=== PATIENT | male | born 1945 | race Caucasian/White ===

== ENCOUNTER → 2017-10-12 | Outpatient (CLI) | payer MEDICARE, OTHER ==
[~2017-10-12] MED LIST: IOHEXOL 240 MG/ML 50ML VIAL. ONE; IOHEXOL 300 MG/ML 75 ML VIAL. IV ONE
[2017-10-12 11:14] LABS: BASO # 0.1 x10^3/uL (0.0-0.2); BASO % 1 % (0-3); EOS # 0.2 x10^3/uL (0.0-0.7); EOS % 2 % (0-3); HEMATOCRIT 48.8 % (39.0-53.0); LYMPH # 1.5 x10^3/uL (1.0-4.8); LYMPH % 15 % (24-48); MEAN CORPUSCULAR HEMOGLOBIN 29 pg (25-35); MEAN CORPUSCULAR HGB CONC 33 g/dL (31-37); MEAN CORPUSCULAR VOLUME 87 fL (79-100); MONO # 1.2 x10^3/uL (0.0-1.1); MONO % 12 % (0-9); NEUT # 6.9 x10^3uL (1.8-7.7); NEUT % 70 % (31-73); PLATELET COUNT 277 x10^3/uL (140-400); RED CELL DISTRIBUTION WIDTH 15.1 % (11.5-14.5); WHITE BLOOD COUNT 9.9 x10^3/uL (4.0-11.0)
[2017-10-12 11:24] LABS: ALBUMIN 3.4 g/dL (3.4-5.0); ALBUMIN/GLOBULIN RATIO 0.9 (1.0-1.7); CALCIUM 9.2 mg/dL (8.5-10.1); CREATININE 1.4 mg/dL (0.7-1.3); GFR 49.5; POTASSIUM 4.7 mmol/L (3.5-5.1); TOTAL BILIRUBIN 0.5 mg/dL (0.2-1.0); TOTAL PROTEIN 7.2 g/dL (6.4-8.2)
[2017-10-12 12:14] LABS: % BANDS 6 % (0-9); % EOS 4 % (0-5); % LYMPHS 8 % (24-48); % MONOS 13 % (0-10); % SEGS 69 % (35-66)
[2017-10-12 12:15] LABS: PLT ESTIMATE ADEQUATE (ADEQUATE)
[2017-10-12 12:17] LABS: TOXIC GRANULATION SLIGHT
--- NOTE | 2017-10-12 13:53 | RAD ---
Examination: CT of the abdomen pelvis with oral and IV contrast HISTORY: History of left lower quadrant abdominal pain COMPARISON: None available Technique: Axial CT images of the abdomen was performed with oral and IV contrast. Coronal and sagittal reformats are performed Exposure: One or more of the following individualized dose reduction techniques were utilized for this examination: 1. Automated exposure control 2. Adjustment of the mA and/or kV according to patient size 3. Use of iterative reconstruction technique FINDINGS: The visualized bibasilar lungs are clear. No evidence of free air identified in the abdomen. There is mild decreased attenuation noted throughout the liver likely steatosis. There is a 2.2 cm hypodensity identified in the right lobe of the liver and a smaller 1 cm hypodensity identified in the left lobe of the liver could be cysts or cystic lesions or hemangiomas. The visualized spleen, adrenals grossly appears unremarkable. The gallbladder is mildly distended Small gallstones identified within the gallbladder. The visualized pancreas grossly appears unremarkable. The stomach is mildly distended. The small bowel is nondilated. Multiple sigmoid colon diverticulosis identified. There is minimal fat stranding identified about the descending colon diverticula best visualized on series 2 image 47. The appendix is normal. The bilateral kidneys enhance symmetrically. Cystic structures identified in the bilateral kidneys likely cysts. Prominent appearing bilateral renal pelvis is could be moderate bilateral hydronephrosis due to congenital ureteropelvic junction stenosis or prominent extrarenal pelvis. Urinary bladder is mildly distended. Mildly enlarged prostate gland. Mild aortic atherosclerosis. No significant anterior abdominal wall ventral hernia identified. No evidence of lytic bony destructive lesion. IMPRESSION: 1. No evidence of significant anterior abdominal wall ventral hernia identified. 2. Minimal fat stranding identified about the distal sigmoid colon diverticula, nonspecific could be mild diverticulitis. Correlate clinically. 3. Multiple colonic diverticulosis. 4. Cholelithiasis. 5. Hypodensity identified in the liver could be cysts or cystic lesions or hemangiomas. 6. Hepatic steatosis. 7. Moderate bilateral hydronephrosis could be due to congenital ureteropelvic junction stenosis or prominent extrarenal pelvis. 8. Bilateral renal cysts. Electronically signed by: Liban Sharpe MD (10/12/2017 1:49 PM) [facility]
== END | disposition home or self-care (01) ==
LOC: CT 10:23
PROVIDERS: ATTEND Physician Assistant Medical
DX: K57.30 Diverticulosis of large intestine without perforation or abscess without bleeding (principal); K76.0 Fatty (change of) liver, not elsewhere classified; N13.39 Other hydronephrosis; N28.1 Cyst of kidney, acquired; Z90.49 Acquired absence of other specified parts of digestive tract
CPT/HCPCS: 36415; 74177; 80053; 85007; 85025; Q9966

== ENCOUNTER → 2018-06-17 | Outpatient (CLI) | payer MEDICARE, OTHER ==
--- NOTE | 2018-06-17 17:04 | RAD ---
Bilateral knees, 4 views, 06/17/2018: HISTORY: Knee pain The knee joint spaces are well-maintained. No fracture or dislocation is identified. There is minimal spurring at the patellofemoral articulations. No joint effusion is evident. Arterial calcifications are noted. IMPRESSION: 1. Minimal spurring at the patellofemoral joints. 2. No acute bony abnormality is detected. Electronically signed by: Ricky Hernandez MD (06/17/2018 5:01 PM) [facility]
--- NOTE | 2018-06-17 17:06 | RAD ---
Bilateral shoulders, 06/17/2018: HISTORY: Shoulder pain No fracture or dislocation is identified. There is moderate degenerative change at the left AC joint and to lesser degree on the right. The periarticular soft tissues are unremarkable. IMPRESSION: 1. Degenerative change at the acromioclavicular articulations, left greater the right. 2. No acute bony abnormality is detected. Chest, 2 views, 06/17/2018: HISTORY: Pedal edema The heart size and pulmonary vascularity are normal. No pulmonary infiltrate is seen. There is no evidence of pleural fluid. Mild spurring is present in the spine. IMPRESSION: No acute cardiopulmonary abnormality is detected. Electronically signed by: Ricky Hernandez MD (06/17/2018 5:03 PM) [facility]
== END | disposition home or self-care (01) ==
LOC: DXRAD 11:50
PROVIDERS: ATTEND Physician Assistant
DX: M19.011 Primary osteoarthritis, right shoulder (principal); M19.012 Primary osteoarthritis, left shoulder; M76.892 Other specified enthesopathies of left lower limb, excluding foot; M76.891 Other specified enthesopathies of right lower limb, excluding foot; I70.203 Unspecified atherosclerosis of native arteries of extremities, bilateral legs; R60.0 Localized edema; M46.04 Spinal enthesopathy, thoracic region
CPT/HCPCS: 71046; 73030; 73560

== ENCOUNTER 2018-09-08 08:11 | Emergency (ER) | payer MEDICARE, OTHER ==
[~2018-09-08] VITALS: Ht 177.8 cm; Wt 97.4 kg
[2018-09-08 08:52] LABS: BASO % 1 % (0-3); EOS # 0.1 x10^3/uL (0.0-0.7); EOS % 2 % (0-3); HEMOGLOBIN 11.3 g/dL (13.0-17.5); LYMPH # 0.9 x10^3/uL (1.0-4.8); LYMPH % 12 % (24-48); MEAN CORPUSCULAR HEMOGLOBIN 28 pg (25-35); MEAN CORPUSCULAR HGB CONC 33 g/dL (31-37); MEAN CORPUSCULAR VOLUME 85 fL (79-100); MONO # 0.8 x10^3/uL (0.0-1.1); MONO % 10 % (0-9); NEUT # 5.5 x10^3uL (1.8-7.7); NEUT % 75 % (31-73); PLATELET COUNT 392 x10^3/uL (140-400); RED BLOOD COUNT 4.02 x10^6/uL (4.30-5.70); RED CELL DISTRIBUTION WIDTH 14.8 % (11.5-14.5); WHITE BLOOD COUNT 7.4 x10^3/uL (4.0-11.0)
--- NOTE | 2018-09-08 09:02 | RAD ---
EXAM: Head CT without contrast. HISTORY: Syncope. TECHNIQUE: Computed tomographic images of the head were obtained without contrast. *One or more of the following individualized dose reduction techniques were utilized for this examination: 1. Automated exposure control. 2. Adjustment of the mA and/or kV according to patient size. 3. Use of iterative reconstruction technique. COMPARISON: None. FINDINGS: There is no acute or subacute extra-axial or intraparenchymal hemorrhage. There is no mass effect or midline shift. There is no hydrocephalus. There are areas of decreased attenuation within the cerebral white matter, nonspecific and likely related to chronic small vessel disease. There is cerebral volume loss. There is mild paranasal sinus mucosal thickening. The orbits and mastoid air cells are unremarkable. No calvarial lesion is seen. IMPRESSION: 1. No acute intracranial finding. Note is made that MRI is more sensitive for acute infarction. 2. Subtle areas of hypodensity within the cerebral white matter, likely due to chronic small vessel disease. Electronically signed by: Jessenia Damico MD (09/08/2018 8:57 AM) [facility]
--- NOTE | 2018-09-08 09:02 | RAD ---
Single view chest 09/08/2017 CLINICAL INDICATION: Syncopal episode. COMPARISON: Chest radiograph 06/17/2018 FINDINGS: Cardiac and mediastinal silhouettes are unremarkable. No pleural effusion, pneumothorax or focal consolidation. IMPRESSION: No acute cardiopulmonary abnormality. Electronically signed by: Cecil Salvador MD (09/08/2018 8:58 AM) [id number]
[2018-09-08 09:07] LABS: ALBUMIN 2.7 g/dL (3.4-5.0); ALBUMIN/GLOBULIN RATIO 0.7 (1.0-1.7); CALCIUM 8.6 mg/dL (8.5-10.1); CREATININE 1.3 mg/dL (0.7-1.3); POTASSIUM 3.9 mmol/L (3.5-5.1); TOTAL BILIRUBIN 0.3 mg/dL (0.2-1.0); TOTAL PROTEIN 6.4 g/dL (6.4-8.2)
[2018-09-08 09:26] LABS: BARBITURATES NEG (NEG); BENZODIAZEPINES NEG (NEG); CANNABINOIDS NEG (NEG); COCAINE NEG (NEG); METHADONE NEG (NEG); OPIATES NEG (NEG); PHENCYCLIDINE NEG (NEG)
[2018-09-08 09:27] LABS: AMPHETAMINE/METHAMPHETAMINE NEG (NEG)
[2018-09-08] MEDS ORDERED: IV NORMAL SALINE 1,000ML 1,000 ML IV ONE (09:30)
[2018-09-08 09:40] LABS: BACTERIA,URINE 0 /HPF (0-FEW); BILIRUBIN,URINE NEG (NEG); CLARITY,URINE CLEAR; COLOR,URINE YELLOW; GLUCOSE,URINE NEG (NEG); NITRITE,URINE NEG (NEG); RBC,URINE 0 /HPF (0-2); SQUAMOUS EPITHELIAL CELL,UR OCC /LPF; UROBILINOGEN,URINE 0.2 mg/dL (0.2 mg/dL); WBC,URINE RARE /HPF (0-4)
[2018-09-08 10:43] VITALS: BP 120/48
--- NOTE | 2018-09-08 18:16 | EKG ---
[address] [address] Test Date: 2018-09-08 Test Time: 08:23:27 Pat Name: JODI WINCHESTER Department: Room: Gender: M [employer] Tender: HAN : 1945 Requested By: KAILEE HASSAN Order Number: [id number] Reading MD: Clive Messer Measurements Intervals [place] Rate: 76 P: 49 IN: 190 QRS: 9 QRSD: 80 T: 43 QT: 360 QTc: 409 Interpretive Statements SINUS RHYTHM LOW LIMB LEAD VOLTAGE QRS(T) CONTOUR ABNORMALITY CONSIDER ANTEROSEPTAL MYOCARDIAL DAMAGE POSSIBLY ABNORMAL ECG Electronically Signed On 09-10-2018 17:23:21 ENROLLMENT MANAGEMENT VICE PRESIDENT by Clive Messer
--- NOTE | 2018-09-11 14:38 | ED.ADGEN ---
Past History Past Medical History: Hypertension, Hypothyroid, Other Past Surgical History: Other Alcohol Use: Occasionally Drug Use: None Adult General Chief Complaint Chief Complaint Syncope HPI HPI Patient is a 72-year-old male who presents with syncopal episode. Patient had a syncopal episode this morning which was unwitnessed. States he is feeling lightheaded upon getting up from bed and then over to pick item off the floor when he had brief loss of consciousness. Patient reports prior orthostatic episodes. He is had recent diarrhea currently on prostate medication. Patient's spouse heard him fall immediately attended him. Patient's LOC lasted less than 10 seconds. No seizure activity witnessed. Denies headache, chest pain palpitations, extremity weakness or loss of sensation. No other acute symptoms or complaints. Review of Systems Review of Systems ROS as per HPI All other systems were reviewed and found to be within normal limits, except as documented in this note. Current Medications Current Medications Current Medications Medications (Trade) Dose Ordered Sig/Per Start Time Stop Time Status Last Admin Dose Admin Sodium Chloride 1,000 ml @ 1,000 mls/hr 1X ONCE 09/08/18 09:30 09/08/18 10:29 DC 09/08/18 09:34 1,000 MLS/HR Allergies Allergies Allergies Coded Allergies Type Severity Reaction Last Updated Verified No Known Drug Allergies 09/08/18 No Physical Exam Physical Exam Constitutional: Well developed, well nourished, no acute distress, non-toxic appearance. [] HENT: Normocephalic, atraumatic, bilateral external ears normal, oropharynx moist, no oral exudates, nose normal. [] Eyes: PERRLA, EOMI, conjunctiva normal, no discharge. [] Neck: Normal range of motion, no tenderness, supple, no stridor. [] Cardiovascular:Heart rate regular rhythm, no murmur [] Lungs & Thorax: Bilateral breath sounds clear to auscultation [] Abdomen: Bowel sounds normal, soft, no tenderness. [] Skin: Warm, dry, no erythema, no rash. [] Back: No tenderness. [] Extremities: No tenderness, no cyanosis, no clubbing, ROM intact, no edema. [] Neurologic: Alert and oriented X 3, normal motor function, normal sensory function, no focal deficits noted. [] Psychologic: Affect normal, judgement normal, mood normal. [] Current Patient Data Vital Signs Vital Signs Date Time Temp Pulse Resp B/P (MAP) Pulse Ox O2 Delivery O2 Flow Rate FiO2 09/08/18 10:50 70 14 100 09/08/18 10:43 120/48 (72) 09/08/18 09:13 Room Air 09/08/18 08:11 98.2 Lab Results Laboratory Tests Test 09/08/18 08:38 09/08/18 09:05 White Blood Count 7.4 x10^3/uL (4.0-11.0) Red Blood Count 4.02 x10^6/uL (4.30-5.70) L Hemoglobin 11.3 g/dL (13.0-17.5) L Hematocrit 34.0 % (39.0-53.0) L Mean Corpuscular Volume 85 fL (79-100) Mean Corpuscular Hemoglobin 28 pg (25-35) Mean Corpuscular Hemoglobin Concent 33 g/dL (31-37) Red Cell Distribution Width 14.8 % (11.5-14.5) H Platelet Count 392 x10^3/uL (140-400) Neutrophils (%) (Auto) 75 % (31-73) H Lymphocytes (%) (Auto) 12 % (24-48) L Monocytes (%) (Auto) 10 % (0-9) H Eosinophils (%) (Auto) 2 % (0-3) Basophils (%) (Auto) 1 % (0-3) Neutrophils # (Auto) 5.5 x10^3uL (1.8-7.7) Lymphocytes # (Auto) 0.9 x10^3/uL (1.0-4.8) L Monocytes # (Auto) 0.8 x10^3/uL (0.0-1.1) Eosinophils # (Auto) 0.1 x10^3/uL (0.0-0.7) Basophils # (Auto) 0.0 x10^3/uL (0.0-0.2) Sodium Level 137 mmol/L (136-145) Potassium Level 3.9 mmol/L (3.5-5.1) Chloride Level 103 mmol/L (98-107) Carbon Dioxide Level 24 mmol/L (21-32) Anion Gap 10 (6-14) Blood Urea Nitrogen 24 mg/dL (8-26) Creatinine 1.3 mg/dL (0.7-1.3) Estimated GFR (Cockcroft-Gault) 54.0 BUN/Creatinine Ratio 18 (6-20) Glucose Level 111 mg/dL (70-99) H Calcium Level 8.6 mg/dL (8.5-10.1) Total Bilirubin 0.3 mg/dL (0.2-1.0) Aspartate Amino Transferase (AST) 16 U/L (15-37) Alanine Aminotransferase (ALT) 25 U/L (16-63) Alkaline Phosphatase 136 U/L (46-116) H Troponin I Quantitative < 0.017 ng/mL (0-0.055) Total Protein 6.4 g/dL (6.4-8.2) Albumin 2.7 g/dL (3.4-5.0) L Albumin/Globulin Ratio 0.7 (1.0-1.7) L Urine Collection Type Unknown Urine Color Yellow Urine Clarity Clear Urine pH 5.5 Urine Specific [place] 1.015 Urine Protein Neg (NEG-TRACE) Urine Glucose (UA) Neg mg/dL (NEG) Urine Ketones (Stick) Neg mg/dL (NEG) Urine Blood Neg (NEG) Urine Nitrite Neg (NEG) Urine Bilirubin Neg (NEG) Urine Urobilinogen Dipstick 0.2 mg/dL (0.2 mg/dL) Urine Leukocyte Esterase Trace (NEG) Urine RBC 0 /HPF (0-2) Urine WBC Rare /HPF (0-4) Urine Squamous Epithelial Cells Occ /LPF Urine Bacteria 0 /HPF (0-FEW) Urine Mucus Slight /LPF Urine Opiates Screen Neg (NEG) Urine Methadone Screen Neg (NEG) Urine Barbiturates Neg (NEG) Urine Phencyclidine Screen Neg (NEG) Urine Amphetamine/Methamphetamine Neg (NEG) Urine Benzodiazepines Screen Neg (NEG) Urine Cocaine Screen Neg (NEG) Urine Cannabinoids Screen Neg (NEG) Urine Ethyl Alcohol Neg (NEG) Microbiology 09/08/18 Urine Culture - Preliminary, Resulted 09/08/18 Urine Culture Result 1 (NEO) - Preliminary, Resulted EKG EKG [EKG; reviewed] Radiology/Procedures Radiology/Procedures [] Course & Med Decision Making Course & Med Decision Making Pertinent Labs and Imaging studies reviewed. (See chart for details) [CT lab and imaging reviewed. Patient remains hypotensive while seated in the emergency department. IV fluids given. Blood pressure, symptoms improved. Will hold prostate medications with instructions follow-up with PCP and urologist for further management. Return precautions reviewed. Patient verbalized understanding agreement with discharge instructions prior to departure.] Final Impression Final Impression [1. Orthostatic hypotension] Dragon Disclaimer Dragon Disclaimer This electronic medical record was generated, in whole or in part, using a voice recognition dictation system. KAILEE HASSAN DO Sep 11, 2018 14:38
== END 2018-09-08 10:50 | disposition home or self-care (01) ==
LOC: ER 08:11
DX: I95.1 Orthostatic hypotension (principal); R42 Dizziness and giddiness; I10 Essential (primary) hypertension; E03.9 Hypothyroidism, unspecified
CPT/HCPCS: 36415; 70450; 71045; 80053; 80307; 81001; 84484; 85025; 87086; 87186; 93005; 96360; 99284-25; J7030

== ENCOUNTER 2018-11-26 16:11 | Inpatient (IN) | payer MEDICARE, OTHER ==
[~2018-11-26] VITALS: Ht 177.8 cm; Wt 98.0 kg
--- NOTE | 2018-11-26 16:44 | PHYS DOC ---
Past History Past Medical History: Hypertension, Hypothyroid Past Surgical History: Other Alcohol Use: None Drug Use: None Adult General Chief Complaint Chief Complaint: CHEST PAIN HPI HPI 73-year-old male presents with left-sided chest pain. The patient was escorted him on television when he began have a left-sided chest pressure. He states the pain is a 7 out of 10 at its worst and is currently a 6 out of 10. He denies shortness of breath or diaphoresis. He has not had pain like this before. He denies trauma. He has no cardiac history or heart attack. He has not had a stress test or cardiac catheter in several years. He denies fever or chills. Review of Systems Review of Systems Constitutional: Denies fever or chills [] Eyes: Denies change in visual acuity, redness, or eye pain [] HENT: Denies nasal congestion or sore throat [] Respiratory: Denies cough or shortness of breath [] Cardiovascular: No additional information not addressed in HPI [] GI: Denies abdominal pain, nausea, vomiting, bloody stools or diarrhea [] : Denies dysuria or hematuria [] Musculoskeletal: Denies back pain or joint pain [] Integument: Denies rash or skin lesions [] Neurologic: Denies headache, focal weakness or sensory changes [] Endocrine: Denies polyuria or polydipsia [] All other systems were reviewed and found to be within normal limits, except as documented in this note. Allergies Allergies Allergies Coded Allergies Type Severity Reaction Last Updated Verified No Known Drug Allergies 11/26/18 No Physical Exam Physical Exam Constitutional: Well developed, well nourished, no acute distress, non-toxic appearance. [] HENT: Normocephalic, atraumatic, bilateral external ears normal, oropharynx moist, no oral exudates, nose normal. [] Eyes: PERRLA, EOMI, conjunctiva normal, no discharge. [] Neck: Normal range of motion, no tenderness, supple, no stridor. [] Cardiovascular:Heart rate regular rhythm, no murmur [] Lungs & Thorax: Bilateral breath sounds clear to auscultation [] Abdomen: Bowel sounds normal, soft, no tenderness, no masses, no pulsatile masses. [] Skin: Warm, dry, no erythema, no rash. [] Back: No tenderness, no CVA tenderness. [] Extremities: No tenderness, no cyanosis, no clubbing, ROM intact, no edema. [] Neurologic: Alert and oriented X 3, normal motor function, normal sensory function, no focal deficits noted. [] Psychologic: Affect normal, judgement normal, mood normal. [] Current Patient Data Vital Signs Vital Signs Date Time Temp Pulse Resp B/P (MAP) Pulse Ox O2 Delivery O2 Flow Rate FiO2 11/26/18 16:22 97.7 77 18 97 Room Air EKG EKG Sinus rhythm, rate 77, leftward axis, no ST elevations or depressions.[] Radiology/Procedures Radiology/Procedures [] Impressions: EXAM: AP View of the chest DATE: 11/26/2018 4:26 PM INDICATION: CHEST PAIN COMPARISON: 09/08/2018 FINDINGS: The heart is borderline enlarged. Aorta is mildly tortuous. Mediastinal and hilar contours are stable. No focal parenchymal airspace opacity. Trace blunting left costophrenic angle likely small left pleural effusion. No pneumothorax. Biapical pleural/scarring/thickening is seen. IMPRESSION: Trace blunting left costophrenic angle, likely small left pleural effusion. Otherwise no evidence for acute cardiopulmonary process. Electronically signed by: Marlon Diaz MD (11/26/2018 4:49 PM) [facility] DICTATED AND SIGNED BY: MARLON DIAZ MD DATE: 11/26/18 1649 CC: KAILEE MONAE DO; NICHOLAS PRATER PA Course & Med Decision Making Course & Med Decision Making Pertinent Labs and Imaging studies reviewed. (See chart for details) The patient's chest x-ray is significant for a small pleural effusion. The patient's troponin is negative. His EKG is unremarkable. His labs are significant for a slightly decreased hemoglobin of 12 for slightly elevated white count of 13. His HEART score is 5. A single nitroglycerin did start to improve the patient's pain, but also lowered his blood pressure. I discussed admission with the patient for further testing and management. He is in agreement with this plan. I discussed the patient with Dr. Acevedo and he has agreed to admit the patient. [] Dragon Disclaimer Dragon Disclaimer This electronic medical record was generated, in whole or in part, using a voice recognition dictation system. Departure Departure: Impression: Primary Impression: Chest pain Disposition: ADMITTED INPATIENT Condition: STABLE Referrals: NICHOLAS PRATER (PCP) Problem Qualifiers Primary Impression: Chest pain Chest pain type: precordial pain Qualified Codes: R07.2 - Precordial pain KAILEE MONAE DO Nov 26, 2018 16:44
[2018-11-26 16:47] LABS: BASO # 0.1 x10^3/uL (0.0-0.2); BASO % 1 % (0-3); EOS # 0.2 x10^3/uL (0.0-0.7); EOS % 1 % (0-3); HEMATOCRIT 38.1 % (39.0-53.0); HEMOGLOBIN 12.3 g/dL (13.0-17.5); LYMPH # 1.8 x10^3/uL (1.0-4.8); LYMPH % 14 % (24-48); MEAN CORPUSCULAR HEMOGLOBIN 27 pg (25-35); MEAN CORPUSCULAR HGB CONC 32 g/dL (31-37); MEAN CORPUSCULAR VOLUME 84 fL (79-100); MONO # 1.1 x10^3/uL (0.0-1.1); MONO % 8 % (0-9); NEUT # 9.8 x10^3uL (1.8-7.7); NEUT % 76 % (31-73); PLATELET COUNT 310 x10^3/uL (140-400); RED BLOOD COUNT 4.52 x10^6/uL (4.30-5.70); RED CELL DISTRIBUTION WIDTH 17.7 % (11.5-14.5)
--- NOTE | 2018-11-26 16:52 | RAD ---
EXAM: AP View of the chest DATE: 11/26/2018 4:26 PM INDICATION: CHEST PAIN COMPARISON: 09/08/2018 FINDINGS: The heart is borderline enlarged. Aorta is mildly tortuous. Mediastinal and hilar contours are stable. No focal parenchymal airspace opacity. Trace blunting left costophrenic angle likely small left pleural effusion. No pneumothorax. Biapical pleural/scarring/thickening is seen. IMPRESSION: Trace blunting left costophrenic angle, likely small left pleural effusion. Otherwise no evidence for acute cardiopulmonary process. Electronically signed by: Marlon Arizmendi MD (11/26/2018 4:49 PM) [id number]
[2018-11-26 17:00] LABS: ALBUMIN 2.8 g/dL (3.4-5.0); ALBUMIN/GLOBULIN RATIO 0.8 (1.0-1.7); CALCIUM 8.8 mg/dL (8.5-10.1); CREATININE 1.3 mg/dL (0.7-1.3); GFR 53.8; POTASSIUM 3.9 mmol/L (3.5-5.1); TOTAL BILIRUBIN 0.4 mg/dL (0.2-1.0); TOTAL PROTEIN 6.2 g/dL (6.4-8.2)
[2018-11-26] MEDS ORDERED: NITROGLYCERIN SUBLINGUAL 0.4 MG BOTTLE OF 25. SL ONE (17:45)
[2018-11-26] MEDS ORDERED: ASPIRIN 81 MG TAB.CHEW PO ONE (17:45)
[2018-11-26] MEDS ORDERED: NITROGLYCERIN SUBLINGUAL 0.4 MG BOTTLE OF 25. SL PRN (18:30)
[2018-11-26] MEDS ORDERED: ONDANSETRON PF 4 MG/2 ML VIAL. IV PRN (18:30)
[2018-11-26] MEDS ORDERED: MORPHINE SULFATE 2 MG/ML DISP.SYRIN. IV PRN (18:30)
[2018-11-26 19:20] VITALS: BP 146/83
[2018-11-26] MEDS ORDERED: FLUT9.9S NS (20:41)
[2018-11-26] MEDS ORDERED: CALC1TAB54 PO (20:41)
[2018-11-26] MEDS ORDERED: SIMV40TA3 PO (20:50)
[2018-11-26] MEDS ORDERED: FINA5TAB4 PO (20:50)
[2018-11-26] MEDS ORDERED: OXYB5TAB7 PO (20:50)
[2018-11-26] MEDS ORDERED: LEVO125T5 PO (20:50)
[2018-11-26] MEDS ORDERED: LOSA100T2 PO (20:50)
[2018-11-26] MEDS ORDERED: GLUC1CAP48 PO (20:50)
[2018-11-26] MEDS ORDERED: MAG HYDROX/AL HYDROX/SIMETH 30 ML ORAL.SUSP PO PRN (21:30)
[2018-11-26 21:44] LABS: % EOS 1 % (0-5); % METAS 4 % (0-0); % MYELOS 1 % (0-0)
[2018-11-26 21:45] LABS: % LYMPHS 14 % (24-48); % MONOS 5 % (0-10)
[2018-11-26 21:46] LABS: % BANDS 2 % (0-9)
[2018-11-26 21:47] LABS: HYPERSEGS PRESENT
[2018-11-26 21:48] LABS: PLT ESTIMATE ADEQUATE (ADEQUATE)
[2018-11-26 21:49] LABS: OVALOCYTES OCC; TOXIC GRANULATION MOD
[2018-11-26] MEDS: OXYBUTYNIN CHLORIDE 5 MG TABLET PO SCH (21:50)
[2018-11-26] MEDS: SIMVASTATIN 40 MG TABLET. PO SCH (21:50)
--- NOTE | 2018-11-26 21:54 | EKG ---
[address] [address] Test Date: 2018-11-26 Test Time: 16:27:15 Pat Name: JODI WINCHESTER Department: Room: 117 A Gender: M [employer] Q[employer] Tester: : 1945 Requested By: KAILEE MONAE Order Number: [id number] Reading MD: Prateek Baer MD Measurements Intervals [place] Rate: 77 P: 34 CT: 196 QRS: -8 QRSD: 84 T: 27 QT: 354 QTc: 402 Interpretive Statements SINUS RHYTHM Electronically Signed On 11-29-2018 10:06:48 CDT by Prateek Baer MD
[2018-11-26] MEDS: MORPHINE SULFATE 4 MG/ML DISP.SYRIN. IV PRN (22:38)
[2018-11-26 23:10] VITALS: BP 115/73
[2018-11-27] VITALS (7 sets, daily range): BP systolic 85–108; BP diastolic 59–72
[2018-11-27] MEDS: MORPHINE SULFATE 4 MG/ML DISP.SYRIN. IV PRN ×5 (00:51→20:03)
[2018-11-27] MEDS: LEVOTHYROXINE 125 MCG TABLET PO SCH (06:02)
[2018-11-27] MEDS: FINASTERIDE 5 MG TABLET PO SCH (08:07)
[2018-11-27] MEDS: LOSARTAN 50 MG TABLET. PO SCH (08:07)
[2018-11-27] MEDS: GLUCOSAMINE/CHOND 500/400MG CAPSULE PO SCH (08:07)
[2018-11-27] MEDS: PANTOPRAZOLE 40 MG TABLET. PO SCH (08:08)
[2018-11-27] MEDS: FLUTICASONE 50MCG/NASAL SPRAY 16GM BOTTLE. NS SCH (08:08)
[2018-11-27] MEDS: CALCIUM CARB/VIT D3 500/200 TABLET PO SCH ×4 (08:08→20:03)
[2018-11-27 11:24] LABS: BASO # 0.1 x10^3/uL (0.0-0.2); BASO % 1 % (0-3); EOS % 0 % (0-3); HEMATOCRIT 38.8 % (39.0-53.0); HEMOGLOBIN 12.7 g/dL (13.0-17.5); LYMPH % 8 % (24-48); MEAN CORPUSCULAR HEMOGLOBIN 27 pg (25-35); MEAN CORPUSCULAR HGB CONC 33 g/dL (31-37); MEAN CORPUSCULAR VOLUME 83 fL (79-100); MONO # 1.5 x10^3/uL (0.0-1.1); MONO % 11 % (0-9); NEUT # 11.2 x10^3uL (1.8-7.7); NEUT % 81 % (31-73); PLATELET COUNT 306 x10^3/uL (140-400); RED BLOOD COUNT 4.68 x10^6/uL (4.30-5.70); RED CELL DISTRIBUTION WIDTH 17.5 % (11.5-14.5); WHITE BLOOD COUNT 13.9 x10^3/uL (4.0-11.0)
[2018-11-27 11:38] LABS: ALBUMIN 2.6 g/dL (3.4-5.0); ALBUMIN/GLOBULIN RATIO 0.7 (1.0-1.7); CALCIUM 8.8 mg/dL (8.5-10.1); CREATININE 1.2 mg/dL (0.7-1.3); POTASSIUM 4.6 mmol/L (3.5-5.1); TOTAL BILIRUBIN 1.3 mg/dL (0.2-1.0); TOTAL PROTEIN 6.3 g/dL (6.4-8.2)
[2018-11-27] MEDS ORDERED: CONTRAST GIVEN MC PRN (11:45)
[2018-11-27] MEDS ORDERED: IOHEXOL 350 MG/ML 100 ML VIAL. IV ONE (12:00)
--- NOTE | 2018-11-27 12:04 | HP ---
ADMIT DATE: 11/27/2018 HISTORY OF PRESENT ILLNESS: The patient is a 73-year-old male patient who came to the Emergency Room with left-sided chest pain. He was actually watching TV when he began having left-sided chest pressure. He states that the pain was 7/10 at its worst, and by the time he arrived to the Emergency Room, it was 6/10. He denied any shortness of breath, diaphoresis. He has never had any pain like this before. He denied any fall or trauma. There is no cardiac history or heart attack before. He has not had any stress test or cardiac catheterization in several years. He follows with a engraver wood at [facility]. On questioning him further, the pain seems to have aggravated by taking a deep breath, lying flat and somewhat improved and he leans forward. He was extensively investigated in the Emergency Room and has had an EKG, which showed he was in sinus rhythm with heart rate of 77 with leftward axis, but no ST segment elevation or depression. His chest x-ray showed that the heart is borderline enlarged and his aorta is mildly tortuous. His mediastinal and hilar contours are stable; however, there is no focal parenchymal airspace opacity, trace blunting of left costophrenic angle likely small left pleural effusion, no pneumothorax, biapical pleural scarring, thickening seen. He has had lab work, which showed that he has mild leukocytosis, the white cell count 13,000 and his first set of cardiac enzymes showed a troponin to be less than 0.017 and the patient was admitted to do 2 more sets of cardiac enzyme, check his fasting lipid profile and also consult the cardiology team. The pain seems to be more pleural pericardial in nature and is aggravated by taking a deep breath and lying flat. The patient has a small left-sided pleural effusion, but no definite infiltrate in the left lung to account for pneumonia. PAST MEDICAL HISTORY: His past medical history is significant for hypertension, hyperlipidemia, hypothyroidism, gastroesophageal reflux disease, gastritis, benign prostatic hypertrophy. The patient is known to have gallstones, but never had any acute cholecystitis. He has also obstructive sleep apnea, on CPAP, but has been using for almost 10 years, but has not been able to use last night. PAST SURGICAL HISTORY: Past surgical history is significant for umbilical hernia repair, tonsillectomy, esophagogastroduodenoscopy, and colonoscopy. ALLERGIES: He has no known drug allergies. MEDICATIONS: He is currently on following medications: He is on simvastatin 40 mg at bedtime, losartan potassium 50 mg once a day, calcium carbonate with vitamin D3 for oyster shell calcium 4 times a day, Flonase 2 sprays to each nostril once a day, levothyroxine sodium 125 mcg once a day, oxybutynin chloride 5 mg at bedtime, finasteride 5 mg tablet daily, and glucosamine/chondroitin capsules 3 capsules p.o. daily. FAMILY HISTORY: He has one brother, younger, has leukemia; two sisters, both have hypothyroidism and one of them has diabetes. His father in a motor vehicle accident. Mother at the age of 87 because of congestive heart failure. SOCIAL HISTORY: He is , has 2 children from his previous marriage of his own and 2 stepchildren from his second marriage. He quit smoking in 1994. He used to smoke half a pack a day and smoked for 15 years. He drinks alcohol very occasionally. 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 REVIEW OF SYSTEMS: The patient denied any blurring of vision, cataract, glaucoma or macular degeneration. Denied any earache, tinnitus or sensorineural deafness. Denied any nosebleeds, stuffy nose or postnasal drip. Denied any sore throat, sore tongue, toothache, hoarseness of voice or difficulty swallowing. He denied any nausea, vomiting, diarrhea or constipation. Denied any hematemesis, melena or hematochezia. He has upper GI endoscopy about 2 weeks ago so that he has gastritis. He denied any dysuria, frequency or hematuria. He did complain of chest pain, mostly in the left side that is aggravated by taking a deep breath, worse on lying flat and slightly improved when he leans forward. Denied any cough, phlegm or hemoptysis. Denied any chills, rigors or fever. Denied any dizziness, lightheadedness, or vertigo. PHYSICAL EXAMINATION: GENERAL: When I examined him on arrival to the Emergency Room, he looked well and was clearly in no apparent respiratory distress. No pallor, jaundice, cyanosis, or thyromegaly. No jugular venous distension. No lower limb edema. VITAL SIGNS: His heart rate was 77, blood pressure was 165/78, temperature was 97.7, respiratory rate was 18 and oxygen saturation was 97%. HEENT: Examination of the head, eyes, ears, nose and throat showed normocephalic, atraumatic. NECK: Supple. HEART: Showed normal first and second heart sounds. No gallop, rub or murmur. CHEST: Clear to auscultation. No crepitation or rhonchi. ABDOMEN: Distended, soft, nontender. No guarding or rigidity. No organomegaly. All his hernial orifices are intact and bowel sounds normal. NEUROLOGIC: He was hard of hearing, but otherwise all his cranial nerves are intact. EXTREMITIES: He moves extremities without difficulty. He ambulates without assistance or assistive devices. LABORATORY DATA AND IMAGING STUDIES: His lab work on arrival showed a white cell count of 13,000, hemoglobin 12.3, hematocrit 38, MCV 84 and a platelet count of 310,000. His chemistry showed a serum sodium 141, potassium 3.9, chloride 105, bicarbonate 28, anion gap of 8, BUN 29, creatinine 1.3, estimated GFR was 54 mL per minute. His glucose was 90, calcium was 8.8. Total bilirubin, AST, ALT, alkaline phosphatase were normal. First set of cardiac enzymes showed troponin to be less than 0.017. Total protein was 6.2, albumin 2.8. His chest x-ray showed that the patient's heart size is borderline enlarged, aorta is mildly tortuous, mediastinal hilar contours are stable, no focal parenchymal airspace opacity, trace blunting of the left costophrenic angle likely small left pleural effusion. No pneumothorax, biapical pleural scarring, thickening is seen. The impression is the patient has trace blunting of the left costophrenic angle likely small left pleural effusion, otherwise no evidence of acute cardiopulmonary process. IMPRESSION AND PLAN: So, in summary, this is a 73-year-old male patient, who came with left-sided chest pain that is not associated with exertion, not associated with nausea, vomiting, no shortness of breath and no diaphoresis, no radiation to pain. Pain is mostly in the left side involving the area around the heart anteriorly in the left side of the chest. The pain is aggravated by taking a deep breath and lying flat and slightly improved when he leans forward. His EKG did not show any evidence of any ST segment elevation or features suggestive of pericarditis. I could not hear any pericardial rub or pleural rub. The patient was admitted to do 2 more sets of cardiac enzyme and repeat his labs again tomorrow including D-dimer. His creatinine is slightly elevated at 1.3, but I will contact the Radiology to see whether we can do a CT angio of the chest after obviously waiting for the result of the cardiac enzyme and the cardiology evaluation. SANDRA WINN MD DR: TERI/kary JOB#: [id number] / [id number]
--- NOTE | 2018-11-27 14:09 | PDOC2 ---
CONSULT Date of Admission DATE: 11/27/18 TIME: 14:02 Reason for Consult: Chest pain Referring Physician: Dr. Acevedo Chief Complaint Chest pain Source: Chart review, Patient Problem List Problems Medical Problems: (1) Chest pain Status: Acute History of Present Illness Patient is a 73-year-old male who was admitted through the emergency room for new onset of chest discomfort. Patient's discomfort is pleuritic in nature and is significantly increased with deep inspiration. His initial EKG showed no ischemic changes. Cardiac enzymes have been normal 3. His pain was improved but not has but has not resolved today. It is not associated with exertion. He does have a history of hypertension or hyperlipidemia but has no documented history of coronary disease or congestive heart failure. Chest x-ray shows a small left possible pleural effusion. CT scan of the chest is pending. Cardiovascular: HTN, hyperipidemia Pulmonary: Other (sleep apnea) GI: GERD Endocrine: Hypothyroidism Past Surgical History: Tonsillectomy, Other (umbilical hernia repair) Family History: Hypertension Smoke: Quit ALCOHOL: rare Current Medications Current Medications Aspirin (Children'S Aspirin) 324 mg 1X ONCE PO Last administered on 11/26/18at 17:24; Start 11/26/18 at 17:45; Stop 11/26/18 at 17:47; Status DC Nitroglycerin (Nitrostat) 0.4 mg 1X ONCE SL Last administered on 11/26/18at 17: 41; Start 11/26/18 at 17:45; Stop 11/26/18 at 17:47; Status DC Ondansetron HCl (Zofran) 4 mg PRN Q4HRS PRN IV NAUSEA/VOMITING Last administered on 11/27/18at 00:46; Start 11/26/18 at 18:30; Stop 11/27/18 at 18:29 Morphine Sulfate (Morphine 2mg Syringe) 2 mg PRN Q2HR PRN IV PAIN; Start at 18:30; Stop 11/26/18 at 22:31; Status DC Nitroglycerin (Nitrostat) 0.4 mg PRN Q5MIN PRN SL CHEST PAIN; Start 11/26/18 at 18:30; Stop 11/27/18 at 18:29 Oxybutynin Chloride (Ditropan) 5 mg HS PO Last administered on 11/26/18at 21:50 ; Start 11/26/18 at 22:00 Simvastatin (Zocor) 40 mg QHS PO Last administered on 11/26/18 21:50; Start at 22:00 Calcium/Vitamin D (Oscal D 500mg/ 200uts) 1 tab QID PO Last administered on 08:08; Start 11/27/18 at 09:00 Finasteride (Proscar) 5 mg DAILY PO Last administered on 11/27/18 08:07; Start 11/27/18 at 09:00 Fluticasone Propionate (Flonase) 2 spray DAILY NS Last administered on 08:08; Start 11/27/18 at 09:00 Glucosamine/ Chondroitin (Glucosamine-Chondroitin 500/400mg) 3 cap DAILY PO Last administered on 11/27/18 08:07; Start 11/27/18 at 09:00 Levothyroxine Sodium (Synthroid) 125 mcg DAILY06 PO Last administered on 06:02; Start 11/27/18 at 06:00 Losartan Potassium (Cozaar) 50 mg DAILY PO Last administered on 11/27/18 08:07 ; Start 11/27/18 at 09:00 Pantoprazole Sodium (Protonix) 40 mg DAILYAC PO Last administered on 11/27/18 08:08; Start 11/27/18 at 07:30 Al Hydroxide/Mg Hydroxide (Mylanta Plus Xs) 30 ml PRN Q4HRS PRN PO DYSPEPSIA Last administered on 11/26/18 21:51; Start 11/26/18 at 21:30 Morphine Sulfate (Morphine 4mg Syringe) 2 mg PRN Q2HR PRN IV PAIN Last administered on 11/27/18 11:39; Start 11/26/18 at 22:45 Iohexol (Omnipaque 350 Mg/ml) 100 ml 1X ONCE IV Last administered on 12:45; Start 11/27/18 at 12:00; Stop 11/27/18 at 12:01; Status DC Info (Do NOT chart on this entry -- for MONITORING) 1 each PRN DAILY PRN MC SEE COMMENTS; Start 11/27/18 at 11:45; Stop 11/29/18 at 11:44 Active Scripts Active Reported Oxybutynin Chloride 5 Mg Tablet 1 Tab PO HS Finasteride 5 Mg Tablet 1 Tab PO DAILY Glucosamine & Chondroitin Cap (Gluc 2KCL/Chondr/Maricel Hy/Hy Ac) 1 Each Capsule 3 Each PO DAILY Cozaar (Losartan Potassium) 100 Mg Tablet 50 Mg PO DAILY Levothyroxine Sodium 125 Mcg Tablet 1 Tab PO DAILY Simvastatin 40 Mg Tablet 1 Tab PO QHS Flonase Allergy Relief (Fluticasone Propionate) 9.9 Ml [place].susp 2 Sprays NS DAILY Oysco 500+D Tablet (Calcium Carbonate/Vitamin D3) 1 Each Tablet 1 Each PO QID Allergies: Coded Allergies: No Known Drug Allergies (Unverified , 11/26/18) Respiratory: YES: SOB with excertion Cardiovascular: yes: Chest Pain General: mild distress HEENT: Atraumatic Lungs: Other (slightly decreased breath sounds in the bases.) Heart: Regular rate VITALS Vital Signs Date Time Temp Pulse Resp B/P (MAP) Pulse Ox O2 Delivery O2 Flow Rate FiO2 11/27/18 12:11 96 Room Air 11/27/18 11:14 98.0 76 20 108/71 (83) 11/26/18 19:20 96.0 Labs Laboratory Tests Test 11/26/18 16:28 11/26/18 21:30 11/27/18 00:35 11/27/18 11:09 White Blood Count 13.0 x10^3/uL (4.0-11.0) 13.9 x10^3/uL (4.0-11.0) Red Blood Count 4.52 x10^6/uL (4.30-5.70) 4.68 x10^6/uL (4.30-5.70) Hemoglobin 12.3 g/dL (13.0-17.5) 12.7 g/dL (13.0-17.5) Hematocrit 38.1 % (39.0-53.0) 38.8 % (39.0-53.0) Mean Corpuscular Volume 84 fL (79-100) 83 fL (79-100) Mean Corpuscular Hemoglobin 27 pg (25-35) 27 pg (25-35) Mean Corpuscular Hemoglobin Concent 32 g/dL (31-37) 33 g/dL (31-37) Red Cell Distribution Width 17.7 % (11.5-14.5) 17.5 % (11.5-14.5) Platelet Count 310 x10^3/uL (140-400) 306 x10^3/uL (140-400) Neutrophils (%) (Auto) 76 % (31-73) 81 % (31-73) Lymphocytes (%) (Auto) 14 % (24-48) 8 % (24-48) Monocytes (%) (Auto) 8 % (0-9) 11 % (0-9) Eosinophils (%) (Auto) 1 % (0-3) 0 % (0-3) Basophils (%) (Auto) 1 % (0-3) 1 % (0-3) Neutrophils # (Auto) 9.8 x10^3uL (1.8-7.7) 11.2 x10^3uL (1.8-7.7) Lymphocytes # (Auto) 1.8 x10^3/uL (1.0-4.8) 1.0 x10^3/uL (1.0-4.8) Monocytes # (Auto) 1.1 x10^3/uL (0.0-1.1) 1.5 x10^3/uL (0.0-1.1) Eosinophils # (Auto) 0.2 x10^3/uL (0.0-0.7) 0.0 x10^3/uL (0.0-0.7) Basophils # (Auto) 0.1 x10^3/uL (0.0-0.2) 0.1 x10^3/uL (0.0-0.2) Segmented Neutrophils % 72 % (35-66) Band Neutrophils % 2 % (0-9) Lymphocytes % 14 % (24-48) Monocytes % 5 % (0-10) Eosinophils % 1 % (0-5) Metamyelocytes % 4 % (0-0) Myelocytes % 1 % (0-0) Hypersegmented Neutrophils Present Toxic Granulation Mod Dohle Bodies Platelet Estimate Adequate (ADEQUATE) Large Platelets Occ Ovalocytes Occ Sodium Level 141 mmol/L (136-145) 134 mmol/L (136-145) Potassium Level 3.9 mmol/L (3.5-5.1) 4.6 mmol/L (3.5-5.1) Chloride Level 105 mmol/L (98-107) 101 mmol/L (98-107) Carbon Dioxide Level 28 mmol/L (21-32) 25 mmol/L (21-32) Anion Gap 8 (6-14) 8 (6-14) Blood Urea Nitrogen 29 mg/dL (8-26) 21 mg/dL (8-26) Creatinine 1.3 mg/dL (0.7-1.3) 1.2 mg/dL (0.7-1.3) Estimated GFR (Cockcroft-Gault) 53.8 59.0 BUN/Creatinine Ratio 22 (6-20) 18 (6-20) Glucose Level 90 mg/dL (70-99) 128 mg/dL (70-99) Calcium Level 8.8 mg/dL (8.5-10.1) 8.8 mg/dL (8.5-10.1) Total Bilirubin 0.4 mg/dL (0.2-1.0) 1.3 mg/dL (0.2-1.0) Aspartate Amino Transf (AST/SGOT) 27 U/L (15-37) 33 U/L (15-37) Alanine Aminotransferase (ALT/SGPT) 43 U/L (16-63) 70 U/L (16-63) Alkaline Phosphatase 113 U/L (46-116) 139 U/L (46-116) Troponin I Quantitative < 0.017 ng/mL (0-0.055) < 0.017 ng/mL (0-0.055) < 0.017 ng/mL (0-0.055) Total Protein 6.2 g/dL (6.4-8.2) 6.3 g/dL (6.4-8.2) Albumin 2.8 g/dL (3.4-5.0) 2.6 g/dL (3.4-5.0) Albumin/Globulin Ratio 0.8 (1.0-1.7) 0.7 (1.0-1.7) D-Dimer (Dee) 0.51 mg/L (0.00-0.50) Lipase 138 U/L (73-393) Images Chest x-ray shows a possible small left-sided pleural effusion Assessment/Plan 1. Chest pain. Pleuritic in nature. Improved overnight. No acute ischemic EKG changes. Cardiac enzymes have been normal 3. Chest x-ray shows a possible small left-sided pleural effusion. Patient is feeling better today. CT chest scan is pending. From a cardiac viewpoint will continue present treatments awaiting CT chest results.. He will need follow-up as an outpatient. 2. Hypertension. Blood pressures under reasonable control. 3. Hyperlipidemia. Continue statin medication. 4. History of gastroesophageal reflux disease. Thank you for allowing us to participate the care of your patient. MARIO MONZON MD Nov 27, 2018 14:08
--- NOTE | 2018-11-27 14:25 | PN ---
DATE: 11/27/2018 SUBJECTIVE: The patient is still complaining of chest pain, mostly in the left side, aggravated by taking a deep breath. He has 2 more sets of cardiac enzymes that ruled out myocardial infarction as he has also some leukocytosis, so I will check and repeat his labs including D-dimer and I will arrange for him to have a CT scan of the chest with PE protocol. PHYSICAL EXAMINATION: GENERAL: When I examined him, he looked well and was clearly in no apparent respiratory distress. No pallor, jaundice, cyanosis, or thyromegaly. No jugular venous distension. No lower limb edema. VITAL SIGNS: Her heart rate was 92, blood pressure was 103/71, temperature was 97.9, respiratory rate was 20 and oxygen saturation was 96% on room air. HEENT: Examination of the head, eyes, ears, nose and throat showed normocephalic, atraumatic. NECK: Supple. HEART: Showed normal first and second heart sounds. No gallop, rub or murmur. CHEST: Clear to auscultation. No crepitation or rhonchi. ABDOMEN: Distended, soft, nontender. No guarding or rigidity. No organomegaly. All hernial orifices are intact and bowel sounds normal. NEUROLOGIC: He was awake, alert, hard of hearing, otherwise all his cranial nerves are intact. He moves extremities without difficulty. He ambulates without assistance or assistive devices. LABORATORY DATA: His lab work is still pending at the time of this dictation. ASSESSMENT: Some pleural, pericardial left-sided chest pain with left side pleural effusion. PLAN: My plan is to arrange for him to have CT scan of the chest with PE protocol and repeat his labs, CBC, CMP, serum lipase, D-dimer and decide on further management accordingly. SANDRA WINN MD DR: TERI/kary JOB#: [id number] / [id number]
--- NOTE | 2018-11-27 15:03 | RAD ---
Chest CTA History: Shortness of breath, left chest pain Technique: After bolus of intravenous contrast, CT imaging was performed of the chest. Multiplanar reconstruction images to include MIP reconstruction images are submitted. Exposure: One or more of the following individualized dose reduction techniques were utilized for this examination: 1. Automated exposure control 2. Adjustment of the mA and/or kV according to patient size 3. Use of iterative reconstruction technique. Comparison: None Findings: [ ] There is some motion, limits evaluation of the smaller and more distal branches of the pulmonary arteries especially of the left lung base. No central pulmonary embolism is identified. There is no pneumothorax. Major airways are patent. There is mild atelectasis left lingula as well as of the lower lobes greater on the left. There is trace left pleural effusion. Ascending thoracic aorta is somewhat ectatic about 3.7 cm. There is some coronary calcification. There is probable hepatic steatosis. Aortic root measures about 3.9 cm. Impression: 1. No central pulmonary embolism is identified, limited evaluation of the more distal and smaller branches especially of the left lower lobe in part due to motion. There is atelectasis greatest of the lingula and left lower lobe. There is trace left pleural effusion. There is some coronary calcification. There is somewhat ectatic ascending thoracic aorta and aortic root. Electronically signed by: Domingo Iglesias MD (11/27/2018 2:59 PM) [facility]
[2018-11-27] MEDS: OXYBUTYNIN CHLORIDE 5 MG TABLET PO SCH (20:02)
[2018-11-27] MEDS: SIMVASTATIN 40 MG TABLET. PO SCH (20:02)
[2018-11-27] MEDS: IV NORMAL SALINE 1,000ML 1,000 ML IV SCH (23:21)
[2018-11-28 03:00] VITALS: BP 98/58
[2018-11-28 05:56] VITALS: BP 95/57
[2018-11-28 07:59] LABS: BASO % 0 % (0-3); EOS # 0.1 x10^3/uL (0.0-0.7); EOS % 1 % (0-3); HEMATOCRIT 35.2 % (39.0-53.0); HEMOGLOBIN 11.5 g/dL (13.0-17.5); LYMPH % 10 % (24-48); MEAN CORPUSCULAR HEMOGLOBIN 27 pg (25-35); MEAN CORPUSCULAR HGB CONC 33 g/dL (31-37); MEAN CORPUSCULAR VOLUME 83 fL (79-100); MONO # 1.3 x10^3/uL (0.0-1.1); MONO % 13 % (0-9); NEUT % 76 % (31-73); PLATELET COUNT 266 x10^3/uL (140-400); RED BLOOD COUNT 4.24 x10^6/uL (4.30-5.70); RED CELL DISTRIBUTION WIDTH 17.8 % (11.5-14.5); WHITE BLOOD COUNT 10.5 x10^3/uL (4.0-11.0)
[2018-11-28 08:11] LABS: ALBUMIN 2.3 g/dL (3.4-5.0); ALBUMIN/GLOBULIN RATIO 0.6 (1.0-1.7); CALCIUM 8.7 mg/dL (8.5-10.1); CREATININE 1.2 mg/dL (0.7-1.3); POTASSIUM 4.8 mmol/L (3.5-5.1); TOTAL BILIRUBIN 1.3 mg/dL (0.2-1.0); TOTAL PROTEIN 5.9 g/dL (6.4-8.2)
[2018-11-28] MEDS: IV NORMAL SALINE 1,000ML 1,000 ML IV SCH (08:14)
[2018-11-28] MEDS: LOSARTAN 50 MG TABLET. PO SCH (09:00)
[2018-11-28] MEDS: GLUCOSAMINE/CHOND 500/400MG CAPSULE PO SCH (09:54)
[2018-11-28] MEDS: LEVOTHYROXINE 125 MCG TABLET PO SCH (09:54)
[2018-11-28] MEDS: CALCIUM CARB/VIT D3 500/200 TABLET PO SCH (09:55)
[2018-11-28] MEDS: PANTOPRAZOLE 40 MG TABLET. PO SCH (09:55)
[2018-11-28] MEDS: FINASTERIDE 5 MG TABLET PO SCH (09:55)
--- NOTE | 2018-11-28 10:05 | RAD ---
Examination: ABDOMEN LTD History: Elevated liver enzymes Comparison/Correlation: 10/12/2017 CT abdomen and pelvis with contrast Findings: Subtle fatty infiltration of liver noted. Multiple small calculi are present within the gallbladder neck. No biliary dilatation. Normal gallbladder wall thickness. No pericholecystic fluid. Portal venous flow is normal. Common bile duct measures 0.4 cm diameter. No biliary dilatation. Proximal pancreas is unremarkable. Distal pancreas is obscured by bowel gas. Right kidney measures 10.9 cm x 5.7 cm x 5.8 cm. Cyst measuring up to 2.7 cm present. Right renal pelvis fullness noted. Inferior vena cava is not well visualized. Impression: Cholelithiasis. No findings of acute cholecystitis or biliary dilatation. Hepatic lesions described on CT examination are not delineated on ultrasound exam. Further evaluation with MRI of the liver without and with contrast is recommended if able for further characterization. Right pelvocaliectasis. This may also be assessed further on MRI examination of the liver. Electronically signed by: Bill Boles MD (11/28/2018 10:03 AM) [facility]
[2018-11-28 10:09] VITALS: BP 117/76
[2018-11-28 10:10] VITALS: BP 116/73
[2018-11-28 10:11] VITALS: BP 98/66
[2018-11-28] MEDS: FLUTICASONE 50MCG/NASAL SPRAY 16GM BOTTLE. NS SCH (10:20)
[2018-11-30 23:05] LABS: % SEGS 72 % (35-66)
--- NOTE | 2018-12-02 13:27 | DS ---
DATE OF DISCHARGE: 11/28/2018 HISTORY OF PRESENT ILLNESS: The patient is a 73-year-old male patient who presented to the Emergency Room complaining of chest pain, mostly in the left side. It started when he was watching TV. He stated that the pain was 7/10 in severity and by the time he arrived to the Emergency Room, it was 6/10. He denied any shortness of breath, diaphoresis. He has never had any pain like that before. He denied any fall or trauma. There is no cardiac history or heart attack before. He has not had any stress test or cardiac catheterization for several years. He follows with his oracle architect at [facility]. On questioning him further, the pain seems to be aggravated by taking a deep breath, lying flat, and somewhat improved when he leans forward. He was extensively investigated in the Emergency Room and has had an EKG, which showed that he was in sinus rhythm at a rate of 77 with leftward axis, but no ST segment elevation or depression. His chest x-ray showed that heart is borderline enlarged. His aorta is mildly tortuous. His mediastinal and hilar contours are stable. However, there is no focal parenchymal airspace opacity. He has trace blunting of left costophrenic angle, likely small left-sided pleural effusion. No pneumothorax. Biapical pleural scarring and thickening is seen. He has had lab work which showed that he has mild leukocytosis. The white cell count was 13,000 and his first set of cardiac enzymes showed the troponin to be less than 0.17. He was admitted and has had 2 more sets of cardiac enzymes, both were negative. In fact, his troponin was less than 0.017. Given that the pain was pleuritic and aggravated by deep breath, I did order a CT angio of the chest, which basically showed that there is no central pulmonary embolism identified, limited evaluation of the more distal and smaller branches, especially of the left lower lobe in part due to motion. There is atelectasis, greater in the lingula and left lower lobe. There is trace left pleural effusion. There is some coronary calcification. There is somewhat ectatic ascending thoracic aorta and aortic root. His D-dimer was borderline elevated at 0.51. Actually liver enzyme is slightly elevated, so I did actually abdominal ultrasound, which showed that the patient has subtle fatty infiltration of the liver noted, multiple small calculi are present within the gallbladder neck, no biliary dilatation, normal gallbladder wall thickness and no pericholecystic fluid. Portal venous flow is normal. His common bile duct measures 0.4 cm in diameter. No biliary dilatation. Proximal pancreas is unremarkable and distal pancreas is obscured by bowel gas. His right kidney measures 10.9 cm x 5.7 x 5.8 cm, cyst measuring up to 2.7 cm present in the right renal pelvis. Inferior vena cava is not well visualized. The patient has been afebrile throughout his stay in the hospital. Has no cough or phlegm. His chest pain has subsided and a decision was made to discharge him home to continue on his home medications. PHYSICAL EXAMINATION: GENERAL: When I examined him on the day of discharge, he looked well and was clearly in no apparent respiratory distress. No pallor, jaundice, cyanosis, or thyromegaly. No jugular venous distention. No limb edema. VITAL SIGNS: His heart rate was 76, blood pressure was 96/59, temperature was 98.7, respiratory rate was 20, and oxygen saturation was 97%. HEAD, EYES, EARS, NOSE AND THROAT: Showed normocephalic, atraumatic. NECK: Supple. HEART: Showed normal first and second heart sounds with no gallop, rub or murmur. CHEST: Clear to auscultation. No crepitation or rhonchi. ABDOMEN: Distended, soft, nontender. No guarding or rigidity. No organomegaly. All hernial orifices intact. Bowel sounds normal. NEUROLOGIC: He was awake, alert, responding appropriately. All cranial nerves intact. He moves extremities without difficulty and ambulates without assistance or assistive devices. LABORATORY DATA: His lab work on the day of discharge showed his white cell count was 10,500, hemoglobin 11.5, hematocrit 35, MCV 83, and platelet count of 266,000. His chemistry showed a serum sodium 133, potassium 4.8, chloride 101, bicarbonate 26, anion gap of 6, BUN 26, creatinine 1.2, estimated GFR was 59 mL per minute. His glucose was 99, calcium was 8.7. Total bilirubin was 1.3. AST and ALT were normal. Alkaline phosphatase slightly elevated. Total protein was 5.9, albumin 2.3. DISCHARGE MEDICATIONS: He was discharged home to continue on his home medications that include calcium carbonate with vitamin D 1 tablet 4 times a day, finasteride 5 mg once a day, fluticasone propionate for Flonase 2 sprays to each nostril once a day, glucosamine and chondroitin sulfate 3 tablets daily, levothyroxine sodium 125 mcg once a day, oxybutynin chloride 5 mg once a day, simvastatin 40 mg at bedtime. His blood pressure was labile and was on the lower side, so I cut down on his losartan to 50 mg. In fact when he came home, he was on 50 mg, I cut it down to 25. FINAL DISCHARGE DIAGNOSES: Left-sided pleuritic chest pain. No evidence of any pneumonia on the chest x-ray or a CT scan done. He has no pericarditis and no evidence of pulmonary emboli or pneumothorax. Other medical problems include hypertension, hypothyroidism, hyperlipidemia, gastroesophageal reflux disease, gastritis, and benign prostatic hypertrophy. SANDRA WINN MD DR: TERI/kary JOB#: [id number] / [id number]
== END 2018-11-28 10:58 | disposition home or self-care (01) | DRG 204 ==
LOC: ER 16:11 → 1 SOUTH 18:07
PROVIDERS: ADMIT Internal Medicine; ATTEND Internal Medicine
DX: R07.81 Pleurodynia (principal); J90 Pleural effusion, not elsewhere classified; J98.11 Atelectasis; E03.9 Hypothyroidism, unspecified; E78.5 Hyperlipidemia, unspecified; G47.33 Obstructive sleep apnea (adult) (pediatric); I10 Essential (primary) hypertension; K21.9 Gastro-esophageal reflux disease without esophagitis; N40.0 Benign prostatic hyperplasia without lower urinary tract symptoms; Z80.6 Family history of leukemia; Z82.49 Family history of ischemic heart disease and other diseases of the circulatory system; Z83.3 Family history of diabetes mellitus; Z87.891 Personal history of nicotine dependence; I77.810 Thoracic aortic ectasia; K29.70 Gastritis, unspecified, without bleeding; K76.0 Fatty (change of) liver, not elsewhere classified; J98.4 Other disorders of lung
CPT/HCPCS: 36415; 71045; 71275; 76705; 80053; 83690; 84484; 85007; 85025; 85379; 93005; J2270; J2405; Q9967; 99285-25; J7030

== ENCOUNTER → 2019-04-20 | Outpatient (CLI) | payer MEDICARE, OTHER ==
[~2019-04-20] MED LIST changes: +CALC1TAB54 PO; +FINA5TAB4 PO; +FLUT9.9S NS; +GLUC1CAP48 PO; -IOHEXOL 240 MG/ML 50ML VIAL. ONE; -IOHEXOL 300 MG/ML 75 ML VIAL. IV ONE; +LEVO125T5 PO; +LOSA100T2 PO; +OXYB5TAB7 PO; +SIMV40TA3 PO
--- NOTE | 2019-04-20 11:23 | RAD ---
Indication: History of osteopenia and tobacco use and hypothyroidism (taking thyroid medication) and loss of height - 2 inches.. Patient taking Fosamax and calcium. COMPARISON: October 01, 2004. Bone Density: -BMD: (g/cm2) - AP Spine Total (L1-L4).......... 1.343. - Total right Hip................. 0.947. Neck: 0.875 T-Score: - AP Spine Total (L1-L4)......... 1.4. - Total right Hip................. -0.5. Neck: -1.2 Z-Score: - AP Spine Total (L1-L4).......... 2.3. - Total right Hip................. 0.7. World Health Organization criteria for BMD interpretation classify patients as Normal (T-score at or above -1.0), Osteopenic (T-score between -1.0 and -2.5), or Osteoporotic (T-score at or below -2.5). Impression: 1. AP Spine Total L1-L4--- normal. Since the previous study, there has been an increase in the BMD of 30.5%. 2. Total right Hip--- normal. since the previous study, there has been an increase in the BMD of approximately 12%. Neck: Osteopenia. Electronically signed by: Fermín Lin MD (04/20/2019 11:20 AM) [place] [id number]
== END | disposition home or self-care (01) ==
LOC: DXRAD 09:37
PROVIDERS: ATTEND Internal Medicine
DX: M85.88 Other specified disorders of bone density and structure, other site (principal); E03.9 Hypothyroidism, unspecified; Z72.0 Tobacco use
CPT/HCPCS: 77080